=== PATIENT | male | born 2000 | race Caucasian/White ===

== ENCOUNTER 2024-05-14 10:00 | Observation (INO) ==
[2024-05-14] MEDS ORDERED: MIDAZOLAM HCL 1 MG/ML 2ML VIAL ONE (13:26)
[2024-05-14] MEDS ORDERED: fentaNYL citrate PF 100 MCG/2 ML VIAL ONE ×2 (13:27→15:11)
[2024-05-14] MEDS ORDERED: LIDOCAINE 2% 2 ML VIAL/AMP(20MG/ML) INFIL ONE (13:27)
[2024-05-14] MEDS ORDERED: ONDANSETRON INJ 2 MG/ML 2 ML VIAL ONE (13:27)
[2024-05-14] MEDS ORDERED: ROCURONIUM BROMIDE 10 MG/ML 5 ML VIAL IV ONE (13:27)
[2024-05-14] MEDS ORDERED: DexMEDEtomidine HCL IV 100 MCG/ML VIAL IV ONE (13:27)
[2024-05-14] MEDS ORDERED: DEXAMETHASONE SOD INJ 4 MG/ML VIAL ONE (13:27)
[2024-05-14] MEDS ORDERED: PROPOFOL IV EMULSION 10 MG/ML 20 ML VIAL IV ONE (13:27)
[2024-05-14] MEDS ORDERED: SODIUM CHLORIDE 0.9% PF INJ 10 ML VIAL ONE (13:28)
--- NOTE | 2024-05-14 14:07 | Anesthesiology Consultation ---
Date of Service May 14, 2024 Assessment & Plan Chart Review Chart Review: Acceptable Risk for Surgery and Patient NOT seen in Pre Admission Testing Consults Requested none History Surgery Operation Date: 05/14/24 10:00 Proposed Procedures p Laparoscopic Appendectomy - Trip Ceja DO Allergies Allergy/AdvReac Type Severity Reaction Status Date / Time lamotrigine [From Lamictal] Allergy Mild Rash Verified 05/14/24 13:54 peanut Allergy Unknown + test Verified 05/14/24 13:53 shellfish derived Allergy Unknown + test Verified 05/14/24 13:53 tree nut Allergy Unknown +test Verified 05/14/24 13:53 Medications Home Medications Medication Instructions Recorded Confirmed Last Taken acetaminophen 500 mg tablet 1,000 mg PO QID PRN Pain 05/14/24 05/14/24 05/13/24 23:59 hsqwhvswzz-wqlpdkkxuduviuq-iwfncjburwynebfk-acetaminophen 2 cap PO HS PRN Cold Symptoms 05/14/24 05/14/24 05/13/24 23:59 capsule quetiapine 100 mg tablet 200 mg PO HS 05/14/24 05/14/24 05/13/24 23:59 Past Medical History Medical History (Updated 05/14/24 @ 13:53 by Lashay Alston RN) Bipolar affective Panic disorder Past Surgical History Surgical History Hx of myringotomy No pertinent past surgical history Social History Smoking Status: Current every day smoker Hx Alcohol Use: No Hx Substance Use: No
[2024-05-14] MEDS ORDERED: SUCCINYLCHOLINE CHLORIDE 20 MG/ML 10 ML VIAL IV ONE (14:10)
--- NOTE | 2024-05-14 14:12 | Anesthesiology Consultation ---
Date of Service May 14, 2024 Assessment & Plan Chart Review Chart Review: Acceptable Risk for Surgery and Patient NOT seen in Pre Admission Testing + flu Consults Requested none Pulmonary ASA ASA3 Proposed Anesthesia Anesthesia Type: General History Surgery Operation Date: 05/14/24 10:00 Proposed Procedures p Laparoscopic Appendectomy - Trip Ceja DO Allergies Allergy/AdvReac Type Severity Reaction Status Date / Time lamotrigine [From Lamictal] Allergy Mild Rash Verified 05/14/24 13:54 peanut Allergy Unknown + test Verified 05/14/24 13:53 shellfish derived Allergy Unknown + test Verified 05/14/24 13:53 tree nut Allergy Unknown +test Verified 05/14/24 13:53 Medications Home Medications Medication Instructions Recorded Confirmed Last Taken acetaminophen 500 mg tablet 1,000 mg PO QID PRN Pain 05/14/24 05/14/24 05/13/24 23:59 vbklaqjnad-tmwvwtmwpxjvuej-zgbudrioecwksavl-acetaminophen 2 cap PO HS PRN Cold Symptoms 05/14/24 05/14/24 05/13/24 23:59 capsule quetiapine 100 mg tablet 200 mg PO HS 05/14/24 05/14/24 05/13/24 23:59 Past Medical History Medical History (Updated 05/14/24 @ 13:53 by Lashay Alston RN) Bipolar affective Panic disorder Past Surgical History Surgical History Hx of myringotomy No pertinent past surgical history Social History Smoking Status: Current every day smoker Hx Alcohol Use: No Hx Substance Use: No
[2024-05-14] MEDS ORDERED: ATROPINE SULFATE 0.1 MG/ML 10ML SYR IV PRN (14:13)
[2024-05-14] MEDS ORDERED: DROPERIDOL 5 MG/2 ML VIAL IV PRN (14:13)
[2024-05-14] MEDS ORDERED: ALBUT/IPRATROP 3MG/0.5MG NEB 3 ML VIAL INH PRN (14:13)
[2024-05-14] MEDS ORDERED: ePHEDrine sulfate 50 MG/ML AMP IV PRN (14:13)
[2024-05-14] MEDS ORDERED: fentaNYL citrate PF 100 MCG/2 ML VIAL IV PRN (14:13)
[2024-05-14] MEDS: LACTATED RINGER'S 1,000 ML IV SCH (14:19)
--- NOTE | 2024-05-14 14:34 | History & Physical Report ---
Date of Service May 14, 2024 Assessment & Plan (1) Acute appendicitis: Plan: Patient with c/o abdominal pain that started early this AM. He also has a complaint of sweats, cough, and feeling unwell. He denies fever/chills, nausea/vomiting, change in bowel habits. He tested positive for the flu and CT scan completed at [facility] was showing concerns for acute appendicitis. Report from [facility] reviewed and scanned into chart. Pt is in NAC, abd is soft TTP RLQ. Recommending urgent laparoscopic appendectomy, possible open, all other indicated procedures, with on-call surgeon Dr Ceja, procedure, risks and benefits reviewed. Admission and Anticipated Discharge Date Admission Date: May 14, 2024 History of Present Illness Chief Complaint: abdminal pain Primary Care Provider: [facility] Patient is 23 yo male with PMH of panic disorder, bipolar, that was a direct admit from [facility]. Patient was seen earlier today at [facility] with c/o abdominal pain that started early this AM. He also has a complaint of sweats, cough, and feeling unwell. He denies fever/chills, nausea/vomiting, change in bowel habits. He tested positive for the flu and CT scan completed at [facility] was showing concerns for acute appendicitis. The patient reports he takes quetiapine at HS to help with sleep. Allergies Allergy/AdvReac Type Severity Reaction Status Date / Time lamotrigine [From Lamictal] Allergy Mild Rash Verified 05/14/24 13:54 peanut Allergy Unknown + test Verified 05/14/24 13:53 shellfish derived Allergy Unknown + test Verified 05/14/24 13:53 tree nut Allergy Unknown +test Verified 05/14/24 13:53 Home Medications Medication Instructions Recorded Confirmed Type acetaminophen 500 mg tablet 1,000 mg PO QID PRN Pain 05/14/24 05/14/24 History vtxxrspnnk-lekzqzfivgkrwye-qpzgutmslksblubr-acetaminophen 2 cap PO HS PRN Cold Symptoms 05/14/24 05/14/24 History capsule quetiapine 100 mg tablet 200 mg PO HS 05/14/24 05/14/24 History Past Med/Surg History Problem List (Updated 05/14/24 @ 14:31 by ARIEL Cao) Acute appendicitis Medical History Bipolar affective Panic disorder Surgical History Hx of myringotomy No pertinent past surgical history Social History Smoking Status: Current every day smoker Hx Alcohol Use: No Hx Substance Use: No Preferred Language: Thai Communication Ability: Effective Wagon Driller Required: No Beliefs That Will Affect Care: None Current Living Situation: Other Current Living Situation Comment: apartment with 4 other guys current occupational status: student current occupation: [employer] student Other Information That Helps Us Care for You: No Feels Safe at Home: Yes Safety Concerns: Feels Safe At This Time Assistive Devices: None Review of Systems Constitutional: + sweats; no fever and no chills Respiratory: + cough; no dyspnea and no pain on inspi ration Cardiovascular: no chest pain Gastrointestinal: + abdominal pain; no nausea, no vomiting and no change in bowel habits Genitourinary: no dysuria Integumentary: no rash Psychiatric: no confusion Physical Exam Constitutional: well developed, cooperative and comfortable; no acute distress Respiratory: normal respiratory effort and able to speak in complete sentences; no respiratory distress Cardiovascular: Rate/Rhythm: + tachycardic (98) Gastrointestinal (Abdomen): Inspection/Auscultation: abdomen not distended Percussion/Palpation: + abdomen tender (RLQ) and abdomen soft Musculoskeletal: no cyanosis or clubbing, extremities motor strength 5/5 Psychiatric: Orientation: alert and oriented x 3 Results & Data Results & Data Vital Signs (Past 12 Hours) Vital Signs Temp Pulse Pulse Resp BP Pulse Ox O2 Del Method 05/14/24 13:58 98.4 F 98 H 20 157/97 H 98 Room Air 05/14/24 13:37 98.8 F 100 H 18 145/93 H 96 Room Air Supervising Physician Co-Signing Physician Notes I have seen and examined this patient with the TISSUE RECOVERY TECHNICIAN and I agree with the plan PG Care Time/CCT Total # of Minutes Spent Total Time Spent with Patient: Total time spent is greater than 50% in coordination of care (as documented) at patient's floor/unit and/or counseling patient: Coding Level of Care Code 66904 INT INP/OBS CARE 1/40MIN Diagnoses Acute appendicitis K35.80
[2024-05-14] MEDS: ceFAZolin 2000MG 2,000 MG/15 ML SYR IV ONE (14:43)
[2024-05-14] MEDS ORDERED: GLYCOPYRROLATE 0.2 MG/ML VIAL ONE ×2 (15:09→16:19)
[2024-05-14] MEDS ORDERED: NEOSTIGMINE METHYLSULFATE 1 MG/ML 10ML VIAL ONE (16:19)
[2024-05-14] MEDS: BUPIVACAINE/EPINEPHRINE 0.5% MPF 1:200,000 30 ML VIAL ONE (16:32)
--- NOTE | 2024-05-14 16:44 | Operative Report ---
PG Post Operative Report Pre & Post Diagnosis Operation Date: 05/14/24 10:00 Pre-Op Diagnosis: Acute Appendicitis Post-Op Diagnosis: Acute Appendicitis I identified the patient and participated in the time-out.: Yes Procedure Operation Date: 05/14/24 10:00 Actual Procedures p Laparoscopic Appendectomy(Not Applicable) - Trip Ceja DO Surgeon Trip Ceja DO Database Management Specialist Anne Abdul NP Estimated Blood Loss 7 Findings See Below early acute appendicitis in a very retrocecal appendix that was adhesed up the cecum and ascending colon. Normal base, inflammation and thickening fro the mid appendix to the tip Specimens appendix Anesthesia Type General Complications None Indications Symptoms and CT evidence for acute appendicitis Description of Procedure The patient was brought back to the operating room where he was placed on the OR table in supine position. He was connected to cardiac and oxygen monitoring, SCDs were applied to b/l LE and supplemental O2 was provided. The patient was administered general anesthesia and a secure airway was established. A Vences catheter was inserted the abdomen was prepped and draped in typical sterile fashion and a timeout was conducted. Local anesthetic was injected into the skin and subcutaneous tissues prior to making all incisions and all incisions were made with an 11 blade. Bleeding at the incision sites was controlled using cautery. Intra-abdominal access with a Veress needle was gained at the infraumbilical fold and this was confirmed with a saline drop test. CO2 insufflation was initiated and pneumoperitoneum was established to a goal pressure of 15 mmHg. Using direct visualization a 5 mm trocar was inserted via a laparoscope and Optiview port. Under direct visualization a 12 mm trocar was inserted the left lower quadrant and a 5 mm trocar at the midline suprapubic region. There was no free fluid identified in the the abdomen upon entry. The OR table was positioned in left side down and Trendelenburg. The appendix was not in the right lower quadrant. The tissues covering the base of the cecum were very soft without inflammation or thickening and the appendix was absent except that the tinea of the ascending colon to the cecum could be seen talking back up underneath the colon covered with a thin layer of natural peritoneum. The cecum was rotated medially and eventually parts of an appendix were identifiable beneath layers of peritoneum Via gently blunt dissection, the serosal surface of the proximal appendix was finally exposed and this was grasped with a grasper. Once a large enough window was created, a purple loaded 45mm endoGIA was used to ligate and transect the appendix away from the base of the cecum. Excess discharged arcelia were removed. Through alternating blunt and harmonic dissection, the appendix was from the posterolateral cecum and ascending colon. There was some bleeding of the peeled away serosal tissues during dissection. The area was checked for hemostasis. No active bleeding was identified. The area was copiously irrigated and suctioned and no active bleeding was identified. Excess for the longer proper quadrant and right paracolic gutter was suctioned away. The appendix was placed in an Endo Catch bag and removed from the abdomen via the left lower quadrant incision site. The OR table was returned to neutral position and omentum was used to cover the surgical site. The instruments were removed. CO2 insufflation was discontinued and excess pneumoperitoneum was evacuated. The fascia at the left lower qu adrant incision was closed using 0 Vicryl suture. Additional local anesthetic was used anesthetize the skin and subcutaneous tissue at all incisions as well as the fascia at the left lower quadrant incision. The abdomen was wiped clean with a saline soaked lap pad and dried. The skin was closed using 4-0 Vicryl suture. The incisions were then sealed with Dermabond. The patient tolerated the procedure well. The Vences catheter was removed, anesthesia was discontinued and the secure airway was removed. He was transferred to recovery in stable condition. I attest to the content of the Intraoperative Record and any orders documented therein. Any exceptions are noted below.
[2024-05-14] MEDS ORDERED: oxyCODONE HCL IR 5 MG TAB (IMMEDIATE RELEASE) PO PRN (17:52)
[2024-05-14] MEDS ORDERED: ACETAMINOPHEN 325 MG TAB PO PRN (17:52)
[2024-05-14] MEDS ORDERED: MoRPHine SULFATE 2 MG/ML CARP IV PRN (17:52)
--- NOTE | 2024-05-14 18:29 | Anesthesiology Progress Note ---
Date of Service May 14, 2024 Anesthesia Post Procedure Vital Signs Vital Signs: Temp Pulse Pulse Resp BP Pulse Ox O2 Del Method 05/14/24 18:25 36.4 C L 87 18 179/87 H 97 Room Air 05/14/24 17:30 36.7 C 87 22 161/104 H 95 Nasal Cannula 05/14/24 17:25 87 153/115 H Nasal Cannula 05/14/24 17:20 98 H 19 162/115 H 93 Nasal Cannula 05/14/24 17:10 101 H 15 149/107 H 93 Nasal Cannula 05/14/24 17:00 90 13 147/101 H 99 Oxymask 05/14/24 16:52 36.6 C 107 H 17 150/104 H 97 Oxymask 05/14/24 13:58 36.9 C 98 H 20 157/97 H 98 Room Air 05/14/24 13:37 37.1 C 100 H 18 145/93 H 96 Room Air O2 Flow Rate 05/14/24 18:25 05/14/24 17:30 2 05/14/24 17:25 2 05/14/24 17:20 2 05/14/24 17:10 2 05/14/24 17:00 4 05/14/24 16:52 9 05/14/24 13:58 05/14/24 13:37 Transfer of Care Handoff Completed per policy Notes Mental Status: alert / awake / arousable Patient Amnestic to Procedure: Yes Nausea / Vomiting: adequately controlled Pain: adequately controlled Airway Patency, RR, SpO2: stable & adequate BP & HR: stable & adequate Hydration State: stable & adequate Anesthetic Complications: no major complications apparent and Pt Satisfied with anesthetic care
[2024-05-14] MEDS: MoRPHine SULFATE 4 MG/ML 1 ML CARP\\VIAL IV PRN (18:32)
[2024-05-14] MEDS: HYDROmorphone INJ 0.5 MG/0.5 ML SYR IV PRN (20:49)
[2024-05-14] MEDS: COUGH DROP (SUGAR FREE) LOZ 24 LOZ/1 BOX BUCCAL STA (22:23)
[2024-05-14] MEDS: ACETAMINOPHEN 1,000 MG/100 ML VIAL IV PRN (23:13)
[2024-05-15 07:29] VITALS: BP 142/83; PULSE 87; RESP 18; TEMP 98.1; O2SAT 99
[2024-05-15] MEDS ORDERED: HYDROmorphone INJ 0.5 MG/0.5 ML SYR IV PRN (09:05)
--- NOTE | 2024-05-15 09:05 | Surgery Progress Note ---
Date of Service May 15, 2024 Assessment & Plan (1) Acute appendicitis: Plan: POD#1 lap appy fever last night at 11pm to 102F, afebrile this AM. he is also noted to be flu +. he has no respiratory complaints requested labs, refused initially but was willing later this AM will adjust apap to be standing, dilaudid to be q3h pending labs may be able to add in dose of toradol. currently using ice to shoulder. incisions c/d/i. expected post op discomfort noted in abdomen encouraged pt to get oob as able, this will also help with gas discomfort dispo is on hold for now until symptoms improve Admission and Anticipated Discharge Date Admission Date: May 14, 2024 Supervising Physician Co-Signing Physician Notes I have seen and examined this patient this am He feels improved from shoulder pain after getting up out of bed, is in a chair. He is tolerating a regular diet but denies passing gas as of yet. Offer and encourage use of oral pain medication prior to pain becoming severe. Ambulate as much as possible and comfortable for the patient. Subjective Patient having R shoulder pain this AM. He said he cannot get out of bed. He states his shoulder pain is so bad that he cannot quantify/characterize his abdominal discomfort even though it's there. He denies any CP/SOB/dizziness, No nausea/vomiting. He turned away phleb this AM because of how he was feeling. Physical Exam Physical Exam: awake, crying with friend at bedside. Respiratory: normal respiratory effort Gastrointestinal (Abdomen): Inspection/Auscultation: + abdominal surgical incision (c/d/i with dermabond) Percussion/Palpation: + abdomen tender (ttp martín incisionally and in rlq) and abdomen soft Results & Data Vital Signs (Past 12 Hours) Vital Signs Temp Pulse Pulse Resp BP Pulse Ox O2 Del Method 05/15/24 07:28 98.1 F 87 18 142/83 H 99 Room Air 05/15/24 03:28 98.4 F 96 H 22 132/87 98 Nasal Cannula 05/14/24 23:05 102.6 F H 122 H 18 138/81 98 Nasal Cannula O2 Flow Rate 05/15/24 07:28 05/15/24 03:28 2 05/14/24 23:05 2 PG Care Time/CCT Total # of Minutes Spent Total Time Spent with Patient: Total time spent is greater than 50% in coordination of care (as documented) at patient's floor/unit and/or counseling patient: Coding Level of Care Code 64425 Post Operative Follow-Up Diagnoses Acute appendicitis K35.80
[2024-05-15] MEDS: ACETAMINOPHEN 1,000 MG/100 ML VIAL IV SCH (09:31)
[2024-05-15] MEDS: ONDANSETRON INJ 2 MG/ML 2 ML VIAL IV PRN (10:48)
[2024-05-15 12:18] LABS: Basophils # (auto) 0.01 K/uL (0.00-0.20); Basophils % (auto) 0.1 %; Hematocrit (blood only) 42.7 % (42.0-52.0); Hemoglobin 14.6 g/dl (14.0-18.0); Immature Granulocytes # (auto) 0.01 K/uL (0.01-0.20); Immature Granulocytes % (auto) 0.1 %; Lymphocytes # (auto) 1.82 K/uL (1.20-3.40); Lymphocytes % (auto) 25.6 %; Mean Corpuscular Hemoglobin 28.9 pg (25.0-34.0); Mean Corpuscular Hgb Conc 34.2 g/dL (32.0-36.0); Mean Corpuscular Volume 84.4 fL (80.0-100.0); Mean Platelet Volume 9.9 fL (9.4-12.4); Monocytes # (auto) 0.61 K/uL (0.11-0.59); Monocytes % (auto) 8.6 %; Neutrophils # (auto) 4.65 K/uL (1.40-6.50); Neutrophils % (auto) 65.6 %; Platelet Count 212 K/uL (130-400); Red Blood Count 5.06 M/uL (4.70-6.10)
[2024-05-15] MEDS ORDERED: ACETAMINOPHEN 325 MG TAB PO PRN (14:51)
[2024-05-15] MEDS: oxyCODONE HCL IR 5 MG TAB (IMMEDIATE RELEASE) PO PRN (16:10)
[2024-05-15] MEDS: oxyCODONE HCL IR 5 MG TAB (IMMEDIATE RELEASE) PO ONE (17:59)
[2024-05-15] MEDS ORDERED: QUEtiapine FUMARATE 200 MG TAB PO SCH (21:00)
--- NOTE | 2024-05-16 15:08 | Discharge Summary ---
<Statement entered by Trip Ceja DO - 05/16/24 22:34> A significant amount of time was spent on education and answering questions for the patient and his mother who arrived to [facility] late in the evening on the day of his discharge. All of their questions were answered to their satisfaction. Date of Service May 16, 2024 Admission HPI Per Admitting Provider Patient is 23 yo male with PMH of panic disorder, bipolar, that was a direct admit from [facility]. Patient was seen earlier today at [facility] with c/o abdominal pain that started early this AM. He also has a complaint of sweats, cough, and feeling unwell. He denies fever/chills, nausea/vomiting, change in bowel habits. He tested positive for the flu and CT scan completed at [facility] was showing concerns for acute appendicitis. The patient reports he takes quetiapine at to help with sleep. Principal Diagnosis acute appendicitis Discharge Exam Constitutional well developed, cooperative and comfortable; no acute distress Respiratory normal respiratory effort and able to speak in complete sentences; no respiratory distress Cardiovascular Rate/Rhythm: regular rate Gastrointestinal (Abdomen) Inspection/Auscultation: abdomen not distended Percussion/Palpation: abdomen soft Musculoskeletal no cyanosis or clubbing, extremities motor strength 5/5 Psychiatric Orientation: alert and oriented x 3 Discharge Data Allergies Allergy/AdvReac Type Severity Reaction Status Date / Time lamotrigine [From Lamictal] Allergy Mild Rash Verified 05/14/24 13:54 peanut Allergy Unknown + test Verified 05/14/24 13:53 shellfish derived Allergy Unknown + test Verified 05/14/24 13:53 tree nut Allergy Unknown +test Verified 05/14/24 13:53 Procedures Performed Operation Date: 05/14/24 10:00 Actual Procedures p Laparoscopic Appendectomy(Not Applicable) - Trip Ceja DO Hospital Course (1) Acute appendicitis: This is a 23 yo male who presented to [facility] on 05/14/24 with c/o abdominal pain. He had a ct scan of the abdomen/pelvis that was concerning for acute appendicitis and patient tested positive for flu. Dr Ceja on- call surgeon was contacted by [facility] and agreed to accept patient for transfer. He arrived to the [facility] on 05/14/24. The patient was made NPO with IVF and booked for the OR. On 05/14/24 the patient went to the OR with Dr Ceja for a laparoscopic appendectomy. The patient tolerated the procedure well, see operative report for full details. Post operatively the patient's diet was advanced, pain managed on prn meds, and incisions clean/dry/intact. On POD#1 the patient was deemed stable for discharge to home. The patient was given discharge instructions, follow up recommendations, return precautions and a prescription for narcotic pain medication . Total Time Total Time Spent Total Time Spent (In Minutes): 10 Discharge Plan Discharge Items Patient Disposition: Home - Self-Care Reason For Visit: ACUTE APPENDICITIS Discharge Diagnosis: laparoscopic appendectomy Activity: As commented below Lifting: No more than 10 pounds Bathing Comment: you can shower tomorrow. No soaking in pools/bath/hot tubs for 2 weeks Exercise/Sports: Wait until after follow-up appointment Driving/Machine Use: no driving if taking narcotic pain medication Non-emergency contact: Surgeon Call non-emergency contact if: you have any medication questions, your symptoms worsen, your pain is not controlled, you have a fever, your temperature is above 101.5, your wound has increased redness, your wound has increased drainage and your wound pain has increased Follow-up/Referrals: [facility] [Primary Care Provider] - Trip Ceja, [Physician] - (call office for follow up in 1-2 weeks ) Diet: Regular Addtl Attending Provider Instructions: You have surgical glue called dermabond on your surgical site incisions. You may shower with this on. This will tend to come off within a couple of weeks. Do not pick at it. You may purchase Tylenol and or Ibuprofen over the counter if needed for addition pain control over the next few days. Take per manufacturers instructions, Do not take more than 3 grams of Tylenol in 24 hours. You may ice on and off alternating every 20 minutes as needed to help with pain and swelling over the next few days. Pending Studies at Discharge: Yes Studies:: surgical pathology Stand-Alone Forms: My Everyday Health, Work/School Release, Smoking Cessation Medications and DC Order Prescriptions: Continued quetiapine 100 mg tablet 200 mg PO HS acetaminophen 500 mg Tablet 1,000 mg PO QID PRN (Reason: Pain) ddbjruzad-MUB-EW-acetaminophen Capsule 2 cap PO HS PRN (Reason: Cold Symptoms) No Action oxycodone 5 mg tablet 5 mg PO Q4H PRN (Reason: pain) Qty: 20 0RF Discharge Orders: Discharge Order (Routine); Ordered 05/15/24 Ordered By: Janet Nicole/Other Patient Handouts: Oxycodone Oral Tablet, Appendectomy Admission Data Admit Date/Time: 05/14/24 12:42 Attending Provider: Trip Ceja Admit Provider: Trip Ceja Primary Care Provider: [facility] Other Interventions: Discharge Summary Assessment (RN) Last Done: 05/15/24 16:25 Supervising Physician Co-Signing Physician Notes I have seen and examined this patient this am He feels improved from shoulder pain after getting up out of bed, is in a chair. He is tolerating a regular diet but denies passing gas as of yet. Offer and encourage use of oral pain medication prior to pain becoming severe. Ambulate as much as possible and comfortable for the patient. Coding Level of Care Code 65383 IN/OBS DISCH 30 MIN/LESS Diagnoses Acute appendicitis K35.80
== END 2024-05-15 18:20 | disposition home or self-care (01) ==
LOC: INTOOBSV 12:42 → 3W 12:42